=== PATIENT | female | born 1930 | race Caucasian/White ===

== ENCOUNTER 2019-02-24 18:32 | Inpatient (IN) | payer MEDICARE ==
--- NOTE | 2019-02-24 19:26 | ED ---
Adult Trauma - HPI Summary HPI Summary: This patient is an 88 year old F presenting to ED with a chief complaint of unwitnessed fall last night. Patient fell down a flight of thirteen steps. She has abrasions on her left arm, bilateral knees, back of head, left hip, and left foot. Patient reports lateral neck pain and right fraga pain. The patient rates the pain 5/10 in severity, achy, worse when she moves her leg. Patient lives alone and has a daily caregiver who checks in on her last saw her last night at 6 PM. She has family but they are not local. PMHx of dementia. Patient's neurologic baseline which is oriented intimately confused at times. - History of Current Complaint Chief Complaint: EDFall Stated Complaint: FALL PER EMS Time Seen by Provider: 02/24/19 18:34 Hx Obtained From: Patient, Family/O And M Supervisor Mechanism of Injury: Fall - Down flight of 13 steps Loss of Consciousness: unsure Onset/Duration: Started Days Ago - Last night, Traumatic, Still Present Onset of Pain: Post Accident Onset Severity: Moderate Current Severity: Moderate Pain Intensity: 5 Pain Scale Used: 0-10 Numeric Location: Head, Neck, Extremities, Other - Hip Aggravating Factor(s): Nothing Alleviating Factor(s): Nothing Associated Signs & Symptoms: Positive: Ecchymosis - Allergy/Home Medications Allergies/Adverse Reactions: Allergies Allergy/AdvReac Type Severity Reaction Status Date / Time No Known Allergies Allergy Verified 07/15/12 10:38 Home Medications: Home Medications NK [No Home Medications Reported] 02/24/19 [History Confirmed 02/24/19] PMH/Surg Hx/FS Hx/Imm Hx Endocrine/Hematology History: Reports: Hx Anemia Denies: Hx Anticoagulant Therapy, Hx Diabetes, Hx Thyroid Disease Cardiovascular History: Reports: Hx Hypercholesterolemia - HLD, Hx Valvular Heart Disease - AORTIC STENOSIS, AVR, Other Cardiovascular Problems/Disorders - AORTIC STENOSIS Denies: Hx Hypertension, Hx Pacemaker/ICD Respiratory History: Denies: Hx Asthma, Hx Chronic Obstructive Pulmonary Disease (COPD) GI History: Denies: Hx Ulcer History: Denies: Hx Renal Disease, Other Problems/Disorders - DENIES Musculoskeletal History: Reports: Hx Back Problems - DJD Denies: Hx Osteoporosis Sensory History: Reports: Hx Cataracts, Hx Contacts or Glasses, Hx Vision Problem - reading glasses Opthamlomology History: Reports: Hx Cataracts, Hx Contacts or Glasses, Hx Vision Problem - reading glasses Neurological History: Reports: Hx Dementia Denies: Hx Seizures Psychiatric History: Denies: Hx Substance Abuse - Cancer History Hx Chemotherapy: No Hx Radiation Therapy: No - Surgical History Surgery Procedure, Year, and Place: BACK SURGERY. AORTIC VALVE REPLACEMENT. CATARACTs - Immunization History Date of Tetanus Vaccine: Unsure Date of Influenza Vaccine: up to date Infectious Disease History: No Infectious Disease History: Denies: Hx Clostridium Difficile, Hx Hepatitis, Hx Human Immunodeficiency Virus (HIV), Hx of Known/Suspected MRSA, Hx Shingles, Hx Tuberculosis, Hx Known/ Suspected VRE, Hx Known/Suspected VRSA, History Other Infectious Disease, Traveled Outside the [place] in Last 30 Days - Family History Known Family History: Positive: Non-Contributory - Social History Alcohol Use: Occasionally Alcohol Amount: once about every 3 months Hx Substance Use: No Substance Use Type: Reports: None Hx Tobacco Use: No Smoking Status (MU): Never Smoked Tobacco Have You Smoked in the Last Year: No Review of Systems Musculoskeletal: Other - Right fraga pain, neck pain Skin: Other - abrasions on her left arm, bilateral knees, back of head, left hip , and left foot All Other Systems Reviewed And Are Negative: Yes Physical Exam - Summary Physical Exam Summary: Constitutional: elderly female, disheveled Skin: left hip abrasion, bilateral knee ecchymosis, 3cm stellate laceration to left elbow with large ecchymosis to left forearm HENT: Dried blood to posterior occiput Eyes: EOM normal, PERRL Neck: Trachea is midline. No stridor; No JVD; No step off; No posterior cervical spine tenderness Cardio: Rhythm regular, rate normal Heart sounds normal; Intact distal pulses; The pedal pulses are 2+ and symmetric. Radial pulses are 2+ and symmetric. Pulmonary/Chest wall: Effort normal; Breath sounds normal; Equal chest rise; No flail segment; No rib tenderness; No sternal tenderness Abd: Soft, Appearance normal. No distension; No tenderness Musculoskeletal: right fraga tenderness, left hip tenderness, left elbow tenderness. No cervical thoracic or lumbar tenderness Neuro: Alert, Oriented x3, GCS 15. Strength 5/5 all extremities. Psych: Mood and affect Normal GCS: 15 Triage Information Reviewed: Yes Vital Signs On Initial Exam: Initial Vitals Temp Pulse Resp BP Pulse Ox 99.3 F 88 16 124/63 99 02/24/19 18:36 02/24/19 18:36 02/24/19 18:36 02/24/19 18:36 02/24/19 18:36 Vital Signs Reviewed: Yes Diagnostics - Vital Signs Vital Signs Temp Pulse Resp BP Pulse Ox 02/24/19 18:36 99.3 F 88 16 124/63 99 - Laboratory Result Diagrams: 02/24/19 19:33 02/24/19 19:33 Lab Statement: Any lab studies that have been ordered have been reviewed, and results considered in the medical decision making process. - Radiology No standard instances Radiology Interpretation Completed By: ED Physician Re-Evaluation - Re-Evaluation First Eval Comment: Patient resting no acute distress. Pending plain films patient to be admitted to medicine for placement Adult Trauma Course/Dx - Course Course Of Treatment: 88-year-old female with a history of dementia presents with fall. - Physical exam notable for posterior occiput contusion, left forearm abrasion and ecchymosis, bilateral knee abrasions, right fraga contusion. Check CT brain C-spine, plain films of the extremities, and basic labs. Admit to medicine as patient is not safe at home and does not have any local caregivers pending imaging. Patient will be signed out to Dr. Ulises Woods at 2200 in 02/24/[address] brain, CT C-spine, and XRs. - Diagnoses Provider Diagnoses: Dementia, Fall, Multiple contusions Discharge - Sign-Out/Discharge Documenting (check all that apply): Sign-Out Patient Signing out patient TO: Ulises Woods Patient Received Moderate/Deep Sedation with Procedure: No - Discharge Plan Condition: Stable Referrals: Erin Bates MD [Primary Care Provider] - - Billing Disposition and Condition Condition: STABLE - Attestation Statements Document Initiated by Scribe: Yes Documenting Scribe: Deep Ramirez Provider For Whom Ayana is Documenting (Include Credential): Anju Sadler MD Scribe Attestation: Deep Lim, scribed for Anju Sadler MD on 02/24/19 at 2220. Scribe Documentation Reviewed: Yes Provider Attestation: The documentation as recorded by the Deep kaminski accurately reflects the service I personally performed and the decisions made by me, Anju Sadler MD Status of Scribe Document: Viewed
[2019-02-24] MEDS ORDERED: Tetan/Diph/Pertus SYR(Tdap)* 0.5 ML SYR(BOOSTRIX) use SYR IM ONE (19:45)
[2019-02-24 19:47] LABS: ABS Eosinophils 0.1 10^3/ul (0-0.6); ABS Lymphocytes 1.2 10^3/ul (1.0-4.8); ABS Monocytes 1.2 10^3/ul (0-0.8); Eosinophil % 1.1 %; Hematocrit 37 % (35-47); Hemoglobin 12.6 g/dL (12.0-16.0); Lymphocyte % 12.9 %; Mean Corpuscular HGB Conc 34 g/dL (31-36); Mean Corpuscular Hemoglobin 29 pg (27-31); Mean Corpuscular Volume 86 fL (80-97); Mean Platelet Volume 7.3 fL (7.4-10.4); Platelet Count 345 10^3/uL (150-450); Red Blood Count 4.33 10^6 /uL (3.70-4.87); Red Cell Distribution Width 14 % (10-15); White Blood Count 9.6 10^3/uL (3.5-10.8)
[2019-02-24 19:52] LABS: INR 1.08 (0.82-1.09)
[2019-02-24 20:04] LABS: Albumin 4.1 g/dL (3.2-5.2); Albumin/Globulin Ratio 1.5 (1-3); BUN/Creatinine Ratio 26.3 (8-20); Calcium 9.4 mg/dL (8.6-10.3); EGFR African American 81.7 (>60); EGFR Non-African American 67.5 (>60); Globulin 2.8 g/dL (2-4); Potassium 4.2 mmol/L (3.5-5.0); Total Bilirubin 0.9 mg/dL (0.2-1.0); Total Protein 6.9 g/dL (6.4-8.9)
--- NOTE | 2019-02-24 22:52 | ED ---
Progress - Progress Note Progress Note: This patient was signed out from Dr. Sadler to Dr. Woods at 22:00 02/24/[address] impression: 1. There has been little change from 12/19/2018. No acute interval intracranial process is identified. 2. Moderate chronic ischemic white matter change with areas of old deep white matter or lacunar infarct and mild diffuse atrophy. ED physician has reviewed this imaging report. Cervical spine CT impression: 1. Arthritic change centered between the odontoid and transverse ligament with question of trace fluid and some odontoid erosive or cystic change. There is a slightly displaced pathologic fracture through the cyst or erosion with posterior offset of the odontoid anteriorly by 1.5 mm and some inward collapse of the posterior wall of the cyst. 2. Multilevel degenerative changes with mild spinal and neural foraminal stenosis from C4-C6. No additional spinal or foraminal stenosis. 3. No additional acute fracture or subluxation ED physician has reviewed this imaging report. Lumbar Spine CT impression: 1. Fusion/ankylosis from L2-S1 with pedicular fusion from L3-S1. 2. Multilevel degenerative disc and facet changes with varying degrees of spinal and neural foraminal stenosis. 3. No acute fracture or subluxation. ED physician has reviewed this imaging report. Thoracic Spine CT impression: 1. Osteopenia. 2. Minimal to mild degenerative disc and facet joint changes. No significant spinal or foraminal stenosis. 3. No acute fracture or subluxation. ED physician has reviewed this imaging report. Upon re-eval, the patient was neurologically intact with no motor or sensory symptoms in hands or feet. Discussed case with Dr. Kohli, who will see the patient in the morning tomorrow. The x-rays revealed that both knees, tibia and fibula, and pelvis showed no acute fracture At 22:55 Case was discussed with Dr. Wilson, hospitalist, and he is aware of the patient. The patient will be admitted and she is agreeable with this plan. Re-Evaluation - Re-Evaluation First Eval Re-Evaluation Time: 22:53 Change: Unchanged Comment: the patient was neurologically intact with no motor or sensory symptoms in hands or feet. Course/Dx - Course Course Of Treatment: This patient was signed out from Dr. Sadler to Dr. Woods at 22:00 02/24/[address] impression: 1. There has been little change from 12/19/2018. No acute interval intracranial. process is identified. 2. Moderate chronic ischemic white matter change with areas of old deep white. matter or lacunar infarct and mild diffuse atrophy. ED physician has reviewed this imaging report. Cervical spine CT impression: 1. Arthritic change centered between the odontoid and transverse ligament with. question of trace fluid and some odontoid erosive or cystic change. There is a. slightly displaced pathologic fracture through the cyst or erosion with. posterior offset of the odontoid anteriorly by 1.5 mm and some inward collapse. of the posterior wall of the cyst. 2. Multilevel degenerative changes with mild spinal and neural foraminal. stenosis from C4-C6. No additional spinal or foraminal stenosis. 3. No additional acute fracture or subluxation. ED physician has reviewed this imaging report. Lumbar Spine CT impression: 1. Fusion/ankylosis from L2-S1 with pedicular fusion from L3-S1. 2. Multilevel degenerative disc and facet changes with varying degrees of. spinal and neural foraminal stenosis. 3. No acute fracture or subluxation. ED physician has reviewed this imaging report. Thoracic Spine CT impression: 1. Osteopenia. 2. Minimal to mild degenerative disc and facet joint changes. No significant. spinal or foraminal stenosis. 3. No acute fracture or subluxation. ED physician has reviewed this imaging report. Upon re-eval, the patient was neurologically intact with no motor or sensory symptoms in hands or feet. Discussed case with Dr. Kohli, who will see the patient in the morning tomorrow. The x-rays revealed that both knees, tibia and fibula, and pelvis showed no acute fracture. At 22:55 Case was discussed with Dr. Wilson, hospitalist, and he is aware of the patient. The patient will be admitted and she is agreeable with this plan. - Diagnoses Provider Diagnoses: Dementia, Fall, Multiple contusions, Odontoid fracture - Provider Notifications Discussed Care Of Patient With: Bruce Kohli Time Discussed With Above Provider: 22:48 Instructed by Provider To: Other - will see the patient in the morning. Discharge - Sign-Out/Discharge Documenting (check all that apply): Patient Departure - admit All imaging exams completed and their final reports reviewed: Yes Patient Received Moderate/Deep Sedation with Procedure: No - Discharge Plan Condition: Fair Disposition: ADMITTED TO [facility] - Billing Disposition and Condition Condition: FAIR Disposition: Admitted to [facility] - Attestation Statements Document Initiated by Ayana: Yes Documenting Warrenibe: Tyson Landeros Provider For Whom Ayana is Documenting (Include Credential): Ulises Woods MD Scribe Attestation: Tyson Lim, scribed for Ulises Woods MD on 02/25/19 at 0517. Scribe Documentation Reviewed: Yes Provider Attestation: The documentation as recorded by the Tyson kaminski accurately reflects the service I personally performed and the decisions made by me, Ulises Woods MD Status of Scribe Document: Viewed
[2019-02-24] MEDS ORDERED: Morphine 4 MG/ML VIAL (1 ml) 4 MG/ML VIAL ONE (23:30)
[2019-02-24] MEDS: Morphine 4 MG/ML VIAL (1 ml) 4 MG/ML VIAL IV PRN (23:32)
[2019-02-25] MEDS ORDERED: oxyCODONE/Acetamin 5/325 MG* TAB PO PRN ×2 (00:12→03:26)
[2019-02-25] MEDS ORDERED: Heparin VIAL(*) 5000 UNITS/ML VIAL (FIVE THOUSAND) SUBCUT ONE (00:38)
[2019-02-25] MEDS: Morphine 4 MG/ML VIAL (1 ml) 4 MG/ML VIAL IV PRN (02:11)
[2019-02-25] MEDS ORDERED: Ketorolac INJ* 30 MG/ML 1 ML VIAL IM ONE (03:30)
[2019-02-25 03:46] LABS: C Reactive Protein 20.81 mg/L (<8.01)
--- NOTE | 2019-02-25 05:13 | HP ---
HISTORY AND PHYSICAL: DATE OF ADMISSION: 02/24/19 ADMITTING PROVIDER: Dar Wilson MD PRIMARY CARE PROVIDER: Dr. Erin Bates. CONSULTING NEUROSURGEON: Dr. Kohli. CHIEF COMPLAINT: Fall down from stairs, neck pain. HISTORY OF PRESENT ILLNESS: Kathy Aguilar is an 88-year-old female with past medical history of worsening dementia, aortic stenosis, status post Bovine aortic valve repair in 2014, AFib, GI bleed, osteoarthritis, and hypertension. She has a family friend/helper, Lillian Briones, who dropped the patient off at 6 p.m. day prior to admission. Upon returning around 4:45 p.m. on day of admission, the patient was found on the couch with laceration to her left elbow and right knee with blood at the base of the stairs and indentation in the drywall near the base of the stairs. The patient is a very poor historian, but was able to say that she thinks she fell, although she said 2 to 3 days ago. There were some loose stools found in the hallway leading to the restroom that was near the base of the stairs. She presented to [facility] and had extensive imaging studies done given the traumatic nature of her fall and neck pain. The most significant of these is cervical spine CT scan, which did demonstrate a slightly displaced pathological fracture, pseudocyst or erosion of the odontoid with posterior aspect anteriorly of 1.5 mm and some inward collapse of the posterior wall of the cyst, so the anterior arch of C1 slightly overlapped to the C2 body by approximately 1.5 mm. The Emergency Room contacted Dr. Kohli of Neurosurgery, who recommended application of cervical collar with Mono J (of note, alternative collar has been applied in the interim) and recommended additional imaging with CT thoracic and lumbar spines, MRI of the cervical spine and MRI of the brain. She was referred to hospitalist service for admission. Dr. Kohli reportedly thought that the fracture looked potentially unstable and would recommend potential surgery to the patient in the morning. The patient denies any chest pain, shortness of breath. She states she thought she had a code that Lillian,the family friend has not noticed anything out the usual recently. I think she is just attributing her muscle soreness to post fall trauma. She apparently was found with some bread and butter at the table near her couch, but cannot attest of whether or not she had been eating or drinking. PAST MEDICAL HISTORY: Dementia; aortic stenosis, status post Bovine aortic valve replacement; AFib; GI bleed; dementia; hypertension; hyperlipidemia; osteoarthritis. PAST SURGICAL HISTORY: Includes lumbar spine surgeries x2, aortic valve replacement (Bovine 2013). MEDICATIONS: She most recently was prescribed looks like aspirin 81 mg and Aricept, though she has not been taking any medications on a regular basis and had not been doing so at least as of September when she saw Dr. Jana fernandez. ALLERGIES: No known drug allergies. FAMILY HISTORY: Mother at age 92 of dementia. Father of Alzheimer's disease in his late 80s. SOCIAL HISTORY: She is a former smoker. Reports of either between 12 and 20 years about a pack per day, quit in the 1970s. Her medical surrogate is her daughter, Macrina Hess of [place], [place]. REVIEW OF SYSTEMS: A complete 14-point review of systems is negative except as per HPI. Denies any abdominal pain. She does have pain in the left elbow. PHYSIAL EXAMINATION GENERAL APPEARANCE: In no acute distress, but some occasional grimaces. She is in a cervical collar. HEENT: Normocephalic. Pupils are equal, round, and reactive to light. LUNGS: Clear to auscultation bilaterally with no wheezing, rales, or rhonchi. CARDIOVASCULAR: Regular rate. Short decrescendo murmur in the left upper sternal border. No rubs or gallops. ABDOMEN: Soft, nontender, nondistended. EXTREMITIES: Warm, well perfused. No peripheral edema. SKIN; There is a ulceration scabbed over on the right patella and over the distal left forearm. DIAGNOSTIC STUDIES/LAB DATA: White count 9.6, hemoglobin 12.6, hematocrit 37, platelets 345, INR 1.08. Sodium 137, potassium 4.2, chloride 105, carbon dioxide 26, BUN 21, creatinine 0.8, glucose 118. Total bili is 0.9, AST 43, ALT 23, alk phos 84, lipase 18. Imagin. CT of the brain noncontrast demonstrated little change from 12/19/18 with no acute interval intracranial process identified. 2. Moderate chronic ischemic white matter change with areas of old deep white matter or lacunar infarct and mild diffuse atrophy. Cervical C-spine demonstrated: 1. Arthritic change centered between the odontoid and transverse ligament with question of trace fluid and some odontoid erosive or cystic change. There is a slightly displace pathological fracture through the cyst or erosion with posterior offset of the odontoid anteriorly by 1.5 cm and some inward collapse of the posterior wall of the cyst. Superior multilevel degenerative changes with mild spinal and neural foraminal stenoses from C4 to C6. No additional spinal or foraminal stenosis. Addendum/Correction: Vertebrae, there is very slight posterior displacement of remaining odontoid and anterior arch of C1 with anterior arch of C1 slightly overlapped into C2 body by approximately 1.5 mm. 2. No additional acute fracture or subluxation. Lumbar spine CT demonstrated: 1. Fusion/ankylosis of the L2-S1 with the particular effusion from L3-S1. Multilevel degenerative disk and facet changes with varying degrees of spinal and neural foraminal stenosis. 2. No acute fracture of subluxation. Thoracic spine CT demonstrated: Impression: 1. Osteopenia. 2. [id number] degenerative disk and facet joint changes. No significant spinal or foraminal stenosis. No acute fracture or subluxation. There is a 2-view chest x-ray, which showed no acute process per by wet read. There is an elbow x-ray, formal read pending. I do not see an obvious fracture. There is a left knee x-ray, formal read pending. I do not see an obvious fracture. There is a right knee x-ray, formal read pending. I do not see an obvious fracture. There is a right tibia-fibular x-ray, formal read pending. I do not see an obvious fracture. There is a left forearm x-ray, formal read pending. I do not see an obvious fracture. There is a pelvis x-ray, formal read pending. ASSESSMENT AND PLAN: Kathy Aguilar is an 88-year-old female with past medical history significant for worsening dementia, Bovine aortic zoe repair, presenting with concern for possible mechanical fall, though she is such a poor historian that is impossible to rule out syncopal event. Dr. Kohli will consult on the case tomorrow for her slightly displaced and potentially unstable odontoid fracture and potentially recommending a surgery to fix this. I am going to get EKG to further help risk stratify her. She does have a history of her last EKG of 06/28/16 of first-degree AV block. Echocardiogram from 2014 showed EF of 55 to 60% with some diastolic dysfunction. She reportedly has a history of atrial fibrillation, but is not on any anticoagulation for that, possibly in the setting of a GI bleed and does not take any regular medications at all regardless. She has an old cardiac catheterization from June 2013, which showed normal coronary arteries. Dr. Kohli wanted to get MRI of the cervical spine and brain, which will likely happen tomorrow. She will be getting [employer]icate[employer] J collar to replace the collar that she already has. I will put her n.p.o. for breakfast except for meds, sips with meds. In terms of known risk stratification, she does not have known coronary artery disease. She does have microvascular changes on her CT of the head and Dr. Peralta has been concerned of possible vascular dementia etiology as well. She is euvolemic on exam. No evidence of any diastolic heart failure or current atrial fibrillation, but we will see what the EKG shows. Her RCRI will likely be 0 with 3.9% 30-day risk of , DE, or cardiac arrest, although potentially that can be 1 depending what the EKG shows, which would increased it to 6.0%. She desires to be a full code. Medical surrogate is her daughter, Macrina Hess. For her pain, I will give her Percocet 1 tab p.o. q.6 hours for moderate pain and if she calls for more severe pain, which will add IV agent. We will try to get a urinalysis on her. She does not have any fever, leukocytosis, or active signs of infection. If her loose stools returned, could consider sending that for further studies. For DVT prophylaxis, I will give her heparin 5000 units tonight, 1 dose and then SCDs and further surgical plans determine further DVT prophylaxis. [id number]/[facility] #: [id number] [facility] HE[facility] PARTNERSJuan
[2019-02-25] MEDS: Acetaminophen TAB* 325 MG PO PRN (12:56)
--- NOTE | 2019-02-25 14:09 | PN ---
Subjective Date of Service: 02/25/19 Interval History: Patient says she doesnot have any complain now. She has lacerated wound on her left elbow, right forearm and both knees. Patient is disoriented and has impaired memory. No vomiting, weakness, incontinence, fever, abdominal pain. She has cervical collar in her neck. Objective Active Medications: Acetaminophen (Tylenol Tab*) 650 mg PO Q6H PRN PRN Reason: PAIN - MILD Last Admin: 02/25/19 12:56 Dose: 650 mg Morphine Sulfate (Morphine 4 Mg/Ml Vial (1 Ml)) 4 mg IV Q1H PRN PRN Reason: PAIN Stop: 02/25/19 23:20 Last Admin: 02/25/19 02:11 Dose: 4 mg Oxycodone/Acetaminophen (Percocet 5/325 Tab*) 2 tab PO Q6H PRN PRN Reason: PAIN Oxycodone/Acetaminophen (Percocet 5/325 Tab*) 1 tab PO Q6H PRN PRN Reason: PAIN - SEVERE Vital Signs - 8 hr 02/25/19 02/25/19 02/25/19 07:22 08:00 11:50 Temperature 98.3 F 98.2 F Pulse Rate 99 84 Respiratory 18 20 18 Rate Blood Pressure 113/55 108/52 (mmHg) O2 Sat by Pulse 97 95 Oximetry Oxygen Devices in Use Now: None Exam: Patient is lying on a bed with cervical collar. HEENT: Normocephalic. Eyes PERRLA Heart: Normal heart sound heard. LUngs: Normal breath sound. Abdomen: Mild suprapubic tenderness. Normal bowel sound heard. Extremities: Lacerated wound on left elbow, right forearm(oozing), scab on right and left knee. Visible veins on lower extremities. Neuro: Patient was oriented to place but but not to person and time. Memory impaired. Normal motor and sensory function all 4 extremities. Result Diagrams: 02/24/19 19:33 02/24/19 19:33 Assess/Plan/Problems-Billing Assessment: 88 y/o F with past medical history of worsening dementia, Aortic Stenosis(s/p sortic valve repair), A Fib, GI Bleed, osteoarthitis and HTN was brought to ED by her friend who found her lying on a couch with laceration on elbow and knees. May have fallen from stairs. Found to have Odontoid fracture on CT scan. Neurosurgeon consulted and may probably operate on tuesday. - Patient Problems (1) Odontoid fracture Comment: Secondary to the fall. No any sign of weakness on upper limbs. CT cervical spine showed slightly displaced pathologic frature of odontoid and multiple degenerative changes. Scheduled for MRI. Neurosurgeon consulted and may do surgery on tuesday. (2) Dementia Comment: Patient has impaired memory with disorientation. one to one monitoring. (3) DVT prophylaxis Comment: SCD. Status and Disposition: Medicine inpatient Attending: Salina Martinez
--- NOTE | 2019-02-25 14:19 | CONS ---
CONSULTATION REPORT: DATE OF CONSULT: 02/25/19 HISTORY OF PRESENT ILLNESS: The patient is a very pleasant 88-year-old female with past medical history of dementia, aortic stenosis, status post bovine aortic valve repair in 2013, atrial fibrillation, GI bleed, osteoarthritis, and hypertension. She was reported to have sustained a fall, although the history is not very clear as the patient is a poor historian. During the patient's visit to emergency room, CT scan of the cervical spine revealed a C2 type II odontoid fracture on the basis of an eroded odontoid process with possible pannus, possibly related to her history of arthritis. Requested to see the patient by Dr. Woods, emergency room physician, regarding the above findings. The patient is a poor historian, but she reports that she has mild neck pain, but no back pain. She denies any weakness, numbness, or tingling or her extremities. The patient was able to ambulate prior to fall, unknown if she had urinary or GI incontinence. The patient reports that she lives with her , who is a retired partner cco. PAST MEDICAL HISTORY: Dementia, aortic stenosis, status post bovine aortic valve replacement, atrial fibrillation, GI bleed, hypertension, hyperlipidemia , and osteoarthritis. PAST SURGICAL HISTORY: Spinal fusions x2, aortic valve replacement. MEDICATIONS: The patient was on: 1. Aspirin 81. 2. Aricept. ALLERGIES: No known drug allergies. FAMILY HISTORY: Dementia, Alzheimer's. SOCIAL HISTORY: The patient is a former smoker. The patient's medical surrogate is her daughter, Macrina Mauricio, from [place], [place]. PHYSICAL EXAMINATION: The patient not in acute distress. She is awake and alert. She is oriented x1 to 2. Her pupils are equal and reactive. Cranial nerves II through XII are grossly intact. Motor 4-5/5 in all extremities. No pronator drift. Sensory is grossly intact to light touch. Deep tendon reflexes are +1 bilaterally. No clonus, no Babinski. Jaja is negative. Straight leg test is negative in the sitting position. The patient has arthritic changes in the distal interphalangeal joints. The patient is on a [place] collar. She has mild tenderness in the midline and the upper cervical spine, but no tenderness to palpation in the thoracic or lumbar spine. DIAGNOSTIC STUDIES/LAB DATA: The patient had CT scan of the brain that did not reveal acute intracranial abnormalities or hemorrhage or hematoma. No midline shift. The patient had the CT scan of the cervical spine that revealed degenerative disease with C2 type II odontoid fracture on basis of eroded C2 odontoid process versus pannus. There is no significant displacement, although it has been reported that there is 1.5 mm posterior offset of the odontoid. The patient had a scan of the thoracic spine that revealed degenerative disc disease, with no evidence of fracture or subluxation. The patient had a CT scan of the lumbar spine that revealed degenerative disc disease with extensive preoperative instrumentation between L3 to S1, with an L3 -4 grade 1 spondylolisthesis with severe degenerative changes, without findings of fracture or traumatic subluxation. ASSESSMENT: The patient is a very pleasant 88-year-old female with history of dementia, bovine aortic valve repair, atrial fibrillation, osteoarthritis, who was reported to have sustained a fall and has significant finding consistent with a C2 type II odontoid fracture with erosion/pannus. PLAN: The patient at this point is doing quite well. She has tolerated [place] collar very well and her pain is adequately controlled. Based on her imaging , I think that she would require an MRI of the cervical spine as well as the brain as on the CT of the brain there is a suspicion of right cerebellar cyst or encephalomalacia, although the findings seem to be chronic. Regarding her cervical spine fracture, I think that because of the previous erosion of the odontoid process and the expected incompetency of the transverse ligament, surgical intervention may the best approach, possibly in the form of C1-C2 fixation with C1 lateral mass as well as C2 pedicle/pars screws if the patient can be cleared for surgical intervention. I attempted to contact the patient's surrogate, who is her daughter, Macrina Mauricio, and left a message on her home phone, which was available on the chart. Thank you for allowing us to participate in the care of this patient. Please do not hesitate to contact our office in case you have any further questions or concerns regarding the care of this patient. In the interim, the patient will be on spine precautions and bedrest, with head of bed elevated not more than 30 degrees. [id number]/[facility] #: [id number] [facility]
--- NOTE | 2019-02-25 15:10 | PN ---
Progress Note - Progress Note Date of Service: 02/25/19 Note: Patient was seen again this pm. Neuro stable. Tolerates MJ collar well. Left message earlier to patient;s daughter phone. Discussed with caregiver at the bedside and regarding possibility of surgical intervention because of C2 potential unstable fracture. Patient's caregiver will contact patient's daughter. Will keep MJ collar on for now and keep patient on spine precautions with bed rest and head OOB no more than 30 ' Ursula Kohli MD
[2019-02-25 16:35] LABS: Urine Appearance Cloudy; Urine Bacteria Absent (Absent); Urine Bilirubin Negative (Negative); Urine Blood Negative (Negative); Urine Color Yellow; Urine Glucose Negative (Negative); Urine Ketones Negative (Negative); Urine Nitrite Negative (Negative); Urine Protein Negative (Negative); Urine Red Blood Cell Absent (Absent); Urine Specific Gravity 1.021 (1.010-1.030); Urine Squamous Epithelial Cell Present (Absent); Urine Urobilinogen Negative (Negative); Urine White Blood Cell 3+(>20/hpf) (Absent)
[2019-02-26] MEDS: oxyCODONE/Acetamin 5/325 MG* TAB PO PRN (00:03)
[2019-02-26] MEDS ORDERED: Haloperidol INJ IV/IM* 5 MG/ML AMP IV SLOW PU PRN (09:13)
--- NOTE | 2019-02-26 11:05 | ECHO ---
*[facility]* [place] [address] Fax #: [phone] Transthoracic Echocardiogram Patient: Kathy Aguilar V : 1930 Study Date: 02/26/2019 Age: 88 Gender: F HR: 82 bpm Height: 67 in /170.2 cm BSA: 1.8 m^2 Weight: 149.7 lb /68 kg BMI: 23.5 kg/m^2 *Dietetic Assistant: * Yuly Toney RD *Referring Physician: * Zain Zee *Reading Physician: * Brayden Davis MD Indications: Syncope. 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 . Risk factors: Hypertension. Conclusions Summary: - Left ventricle: Systolic function is normal. The estimated ejection fraction is 55-60%. Wall motion is normal; there are no regional wall motion abnormalities. - Ventricular septum: Ventricular septal wall motion has a postoperative appearance. - Mitral valve: There is mild regurgitation. - Aortic valve: There is no significant regurgitation. Bioprosthetic aortic valve replacement with normal function. - Tricuspid valve: There is mild regurgitation. - Pericardium, extracardiac: There is no pericardial effusion. - Compared to study of 03/10/15, there is no change. Study data: Transthoracic echocardiogram. Procedure: Transthoracic echocardiography was performed. Image quality was good. Complete 2D, spectral Doppler, and color flow Doppler. Patient status: Inpatient. Patient room number: 403. Rhythm: Normal sinus rhythm with PAC's. Findings Left ventricle: The cavity size is normal. Wall thickness is normal. Systolic function is normal. The estimated ejection fraction is 55-60%. Wall motion is normal; there are no regional wall motion abnormalities. Left ventricular diastolic function parameters are indeterminate. Right ventricle: Well visualized. The cavity size is normal. Wall thickness is normal. Systolic function is normal. Ventricular septum: Well visualized. Ventricular septal wall motion has a postoperative appearance. Left atrium: Well visualized. The atrium is normal in size. Right atrium: Well visualized. The atrium is normal in size. Mitral valve: Well visualized. The leaflets are normal thickness. No echocardiographic evidence for prolapse. There is no evidence of stenosis. There is mild regurgitation. Aortic valve: Well visualized. The valve is trileaflet. The leaflets are normal thickness. The findings are consistent with very mild stenosis. There is no significant regurgitation. Bioprosthetic aortic valve replacement with normal function. Tricuspid valve: Well visualized. The leaflets are normal thickness. There is no evidence of stenosis. There is mild regurgitation. Pulmonic valve: Well visualized. The leaflets are normal thickness. There is no evidence of stenosis. There is moderate regurgitation. Aorta: The aorta is not visualized. Cervical collar in place unable to assess arch. Ascending aorta was visualized. Pericardium: There is no pericardial effusion. No evidence of pleural fluid accumulation. Pulmonary arteries: Systolic pressure is within the normal range. Systemic veins: Well visualized. Inferior vena cava: There is (>= 50%) respiratory change in the IVC dimension. Pulmonary veins: Visualization of the pulmonary venous anatomy is incomplete, but a significant abnormality is unlikely. Measurements Left ventricle Value Ref Right atrium continued Value Ref KRISTINA, LAX 3.9 cm 3.8 - 5.2 ML dim, ES, A4C (H) 4.6 cm 2.6 - ESD, LAX 2.7 cm 2.2 - 3.5 4.4 FS, LAX 32 % 27 - 45 SI dim, ES, A4C 5.1 cm 3.4 - PW, ED, LAX (H) 1.1 cm 0.6 - 0.9 5.3 FS 32 % 27 - 45 SI dim/bsa, ES, 2.8 cm/m^2 1.9 - Mid-wall FS 13 % --------- A4C 3.1 PW, ED (H) 1.1 cm 0.6 - 0.9 Estimated RAP 3 mm Hg -------- PW/ID, ED 0.27 --------- E', lat yisel, TDI (L) 9.1 cm/sec >=10.0 Aortic valve Value R ef E/e', lat yisel, TDI 15 --------- Peak v, S 1.99 m/sec ---- ---- VTI, S 34.4 cm -------- LVOT Value Ref Mean grad, S 8.5 mm Hg -------- Diam, S 1.56 cm --------- Peak grad, S 15.9 mm Hg -------- Area 1.9 cm^2 --------- LVOT/AV, VTI ratio 0.71 -------- Peak kimberly, S 1.32 m/sec --------- TO, VTI 1.36 cm^2 -------- VTI, S 24.5 cm --------- TO, Vmax 1.26 cm^2 -------- Peak grad, S 7 mm Hg --------- Mean grad, S 4 mm Hg --------- Mitral valve Value Ref Peak E 1.34 m/sec -------- Ventricular septum Value Ref Peak A 0.52 m/sec -------- IVS, ED (H) 1.0 cm 0.6 - 0.9 Decel time 151 ms -------- Peak grad, D 7.2 mm Hg -------- Right ventricle Value Ref Peak E/A ratio 2.58 -------- KRISTINA, LAX 2.9 cm --------- MR peak v 3.79 m/sec -------- KRISTINA major ax, A4C (L) 3.4 cm 5.9 - 8.3 Pulmonic valve Value Ref Left atrium Value Ref Peak v, S 0.63 m/sec -------- LA ID 4.2 cm --------- Peak grad, S 1.6 mm Hg -------- SI dim ES, LAX 4.2 cm --------- ML dim, A4C 3.7 cm --------- Tricuspid valve Value Ref SI dim, A4C 6.3 cm --------- TR peak v (H) 3.01 m/sec <=2.8 Vol, ES, 2-p 74 ml --------- Peak RV-RA grad, S 36 mm Hg -------- Vol/bsa, ES, 2-p (H) 41 ml/m^2 16 - 34 Aortic root Value Ref Right atrium Value Ref Root diam 1.5 cm <4.0 SI dim, ES 5.1 cm 3.4 - 5.3 Ascending aorta Value Ref AAo AP diam, S 2.3 cm -------- AAo AP diam/bsa, S 1.3 cm/m^2 -------- Legend: (L) and (H) archana values outside specified reference range. Prepared and electronically signed by Brayden Davis MD 02/26/2019 11:04
--- NOTE | 2019-02-26 11:14 | PN ---
Progress Note - Progress Note Date of Service: 02/26/19 Note: Patient is stable at this time, neurosurgery will plan for surgery tomorrow. Patient has MRI of Cervical spine and Brain pending, will follow up the results of imaging. Patient will needed to be medically cleared and NPO after midnight for surgery in the morning. Dr. Kohli has spoke with patient's daughter to consent patient for surgery.
[2019-02-26] MEDS: Acetaminophen TAB* 325 MG PO PRN (13:54)
--- NOTE | 2019-02-26 14:13 | PN ---
Subjective Date of Service: 02/26/19 Interval History: No overnight issues. Patient is cheerful, able to converse with us, though she is confused in detail information (she thought her was at home and she needed to discuss with him for operation decisions). She had no headache, no dizziness, no numbness or weakness. Objective Active Medications: Acetaminophen (Tylenol Tab*) 650 mg PO Q6H PRN PRN Reason: PAIN - MILD Last Admin: 02/26/19 13:54 Dose: 650 mg Haloperidol Lactate (Haldol Inj Iv/Im*) 2.5 mg IV SLOW PU ONCE PRN PRN Reason: AGITATION Oxycodone/Acetaminophen (Percocet 5/325 Tab*) 2 tab PO Q6H PRN PRN Reason: PAIN Oxycodone/Acetaminophen (Percocet 5/325 Tab*) 1 tab PO Q6H PRN PRN Reason: PAIN - SEVERE Last Admin: 02/26/19 00:03 Dose: 1 tab Vital Signs - 8 hr 02/26/19 02/26/19 02/26/19 07:35 08:00 11:55 Temperature 97.9 F 99.1 F Pulse Rate 83 80 Respiratory 16 16 16 Rate Blood Pressure 121/68 112/73 (mmHg) O2 Sat by Pulse 97 97 Oximetry Oxygen Devices in Use Now: None Exam: Patient is generally well, alert, not oriented, not in distress On collar Heart: S1 S2 normal Lung: clear, no rhonchi or crackles Abdomen: soft, non tender. Lower extremity: no swelling Result Diagrams: 02/24/19 19:33 02/24/19 19:33 Assess/Plan/Problems-Billing Assessment: 88 y/o F with past medical history of worsening dementia, Aortic Stenosis(s/p sortic valve repair), A Fib, GI Bleed, osteoarthitis and HTN was brought to ED by her friend who found her lying on a couch with laceration on elbow and knees. Found to have Odontoid fracture on CT scan. Neurosurgeon was consulted and recommended for operation due to unstable nature of this fracure. However neurosurgeon still couldn't get in touch with patient's daughter despite multiple attempts. - Patient Problems (1) Odontoid fracture Current Visit: Yes Status: Acute Code(s): S12.110A - ANTERIOR DISPLACED TYPE II DENS FRACTURE, INIT FOR CLOS FX SNOMED Code(s): 614278732 Comment: Secondary to the fall. No any sign of weakness on upper limbs. CT cervical spine showed slightly displaced pathologic frature of odontoid and multiple degenerative changes. Scheduled for MRI today plan for operation if daughter consented (2) Dementia Current Visit: Yes Status: Acute Code(s): F03.90 - UNSPECIFIED DEMENTIA WITHOUT BEHAVIORAL DISTURBANCE SNOMED Code(s): 28165882 Comment: Patient has impaired memory with disorientation. one to one monitoring. (3) Aortic stenosis Current Visit: No Status: Acute Code(s): I35.0 - NONRHEUMATIC AORTIC (VALVE ) STENOSIS SNOMED Code(s): 91935957 Comment: - s/p valve replcement - Echo shows normal function (4) Hyperlipidemia Current Visit: No Status: Acute Code(s): E78.5 - HYPERLIPIDEMIA, UNSPECIFIED SNOMED Code(s): 06447821 Comment: continue lipitor (5) Shortness of breath Current Visit: No Status: Acute Code(s): R06.02 - SHORTNESS OF BREATH SNOMED Code(s): 104925100 Comment: - No further episodes -unknown etilogy. Most likely undx COPD; 20 year smoking hx. Never had PFT's. Will need outpt follow-up. Continue albuterol PRN. Prescibe MDI on discharge. - Echo shows no wall motion abnormalities, EF 55-60%, nomral function of aortic bio-prosthetic aortic valve, no effusion. - NM cardiac stress test LOW RISK based on imaging criteria from ACC/AHA - cardiac cath 2012 shows normal coronary arteries - Troponins negative - No EKG changes. (6) Afib Current Visit: No Status: Chronic Code(s): I48.91 - UNSPECIFIED ATRIAL FIBRILLATION SNOMED Code(s): 14824571 Comment: - in Sinus Rhythm - hx of GI bleed. No anticoagulation. - continue ASA (7) DVT prophylaxis Current Visit: Yes Status: Acute Code(s): Z29.9 - ENCOUNTER FOR PROPHYLACTIC MEASURES, UNSPECIFIED SNOMED Code(s): 712826575 Comment: SCD. Status and Disposition: Patient came from home, stays alone at home with helper who came in several times a week. Will need rehab or skilled nursing care place when getting discharged Attestation Documenting Resident: Rosa Metcalf Supervising Physician: Britany Sandoval Attestation: This service has been performed in part by a resident under the direction of a teaching physician.I, Britany Sandoval, performed the service, or was physically present during the critical, or mayo portions of the service, furnished by the resident. I participated in the management of the patient.
--- NOTE | 2019-02-26 17:21 | HOSP.PREOP ---
Subjective Date of Service: 02/26/19 Interval History: 88F dementia, s/p AVR, PAF not on AC, hx of PUD, osteoarthritis and HTN was brought to ED s/p presumed mechanical fall, found to have odontoid fracture on CT scan. Neurosurgeon was consulted and recommended for operation due to unstable nature of this fracture. Patient unable to take full hx 2/2 to MS Preop Operation: Neurosurgical Indication: Fracture Proposed Date: 02/27 BMP, CBC, PT/INR: To be drawn 02/27 EKG; Ordered, last reviewed with Afib chronic, Echocardiogram 02/26 unchanged, no valvular pathology well seated bovine unchanged in position no RWMA RCRI High risk Surgery? No History of ischemic heart dz? No History of CHF? No History of CVA or TIA? Unknown, will presume possible yes in absence of ability to give adequate hx Preop tx with insulin? No Pre op Cr >2? No Risk score 1, Class II, 6% risk of 30 day NM or cardiac arrest Review of Systems - Measurements Intake and Output: Intake and Output Last 24 Hours 02/24/19 02/25/19 02/26/19 02/27/19 06:59 06:59 06:59 06:59 Intake Total 0 110 600 Balance 0 110 600 Weight 150 lb 9.6 oz 150 lb 9.6 oz Intake: Oral 0 110 600 Other: Estimated Void Small # Voids 0 1 - Review of Systems General Comments: Unable to participate Objective Active Medications: Acetaminophen (Tylenol Tab*) 650 mg PO Q6H PRN PRN Reason: PAIN - MILD Last Admin: 02/26/19 13:54 Dose: 650 mg Haloperidol Lactate (Haldol Inj Iv/Im*) 2.5 mg IV SLOW PU ONCE PRN PRN Reason: AGITATION Last Admin: 02/26/19 15:55 Dose: 2.5 mg Oxycodone/Acetaminophen (Percocet 5/325 Tab*) 2 tab PO Q6H PRN PRN Reason: PAIN Oxycodone/Acetaminophen (Percocet 5/325 Tab*) 1 tab PO Q6H PRN PRN Reason: PAIN - SEVERE Last Admin: 02/26/19 00:03 Dose: 1 tab Vital Signs - 8 hr 02/26/19 02/26/19 11:55 16:10 Temperature 99.1 F 98.2 F Pulse Rate 80 86 Respiratory 16 17 Rate Blood Pressure 112/73 107/65 (mmHg) O2 Sat by Pulse 97 97 Oximetry Oxygen Devices in Use Now: None Appearance: Lying in bed in NAD, Cervical Collar Eyes: No Scleral Icterus Respiratory: Clear to Auscultation Cardiovascular: NL Sounds; No Murmurs; No JVD Abdominal: NL Sounds; No Tenderness; No Distention Lymphatic: No Cervical Adenopathy Extremities: No Edema Neurological: - Result Diagrams: 02/24/19 19:33 02/24/19 19:33 Microbiology and Other Data: Microbiology 02/25/19 14:46 Urine Culture - Final Urine No Growth (<1,000 CFU/mL) Assessment/Plan - Billing Assessment: 88F dementia, s/p AVR, PAF not on AC, hx of PUD, osteoarthritis and HTN was brought to ED s/p presumed mechanical fall, found to have odontoid fracture on CT scan. Pt is mod to high risk from an age standpoint, though mod to low from a risk factor standpoint for a mod risk procedure. Her RCRI shows a Class II which portends 6% risk of major complication and given alternatives patients family has elected for surgical correction. -Echo stable -Labs to be viewed 02/27 We recommend no further testing or optimization prior to proceeding to OR.
--- NOTE | 2019-02-27 00:29 | PN ---
Progress Note - Progress Note Date of Service: 02/26/19 Note: Patient seen earlier this am. Neuro stable. Tolerates MJ collar well. Discussed in extend with patient's daughter Macrina over the phone regarding patient's condition. Due to erosion of odontoid and the C2 type 2 fracture, injury or incompetence of transverse ligament has high likelihood. Also due to the poor remaining bone mass at the site of fracture spontaneous bone healing may be challenging. Due to the likely unstable nature of the fracture and the possible devastating neurological injuries that may ocurr, surgical intervention was offered. Discussed in extend with daughter, who is a intraoperative monitoring vtc technician regarding expectations, limitations, alternative treatment options and possible complictions, with complications including but not limited to bleeding, infection,risk of injury to adjacent structures, coma, paralysis, ,need for additional procedures, stroke, blindness, ca , hardware failure, pseudoarthrosis, spinal fluid leak, injury to vertebral arteries,injury to nerves, occipital neuralgia, anesthesia risks, need for prolonged ICU stay, need for tracheostomy, gastrostomy, prolonged rehabilitation, prolonged hospitalization. Also patient's daughter understands that patient's condition may not improve and in fact may get worse and that she may have to have additional procedures in the future. Also she understands that operative plan may be modified according to intraoperative findings and conditions and that the case may be abandoned or done in more than one stages. We also discussed the option of transferring to an other facility and the prospective of my scheduled prolonged absence. Patient's daughter would like to proceed with the surgical intervention in [facility]. Informed consent was obtained. Discussed with patient regarding surgical intervention. Patient has hx of dementia, but understands the need for surgical intervention and has agreed with the procedure. Will proceed with surgical intervention after IM clearance. MRI of c spine revealed similar to CT findings. No obvious infection or tumor. Erosion changes may represent OA changes and pannus, as patient has no known hx of RA or other arthritis. Appreciate IM care. Ursula Kohli MD
[2019-02-27 06:59] LABS: ABS Eosinophils 0.1 10^3/ul (0-0.6); ABS Lymphocytes 1.3 10^3/ul (1.0-4.8); ABS Monocytes 1.1 10^3/ul (0-0.8); ABS Neutrophils 6.7 10^3/ul (1.5-7.7); Eosinophil % 1.5 %; Hematocrit 34 % (35-47); Hemoglobin 11.9 g/dL (12.0-16.0); Lymphocyte % 13.6 %; Mean Corpuscular HGB Conc 35 g/dL (31-36); Mean Corpuscular Hemoglobin 30 pg (27-31); Mean Corpuscular Volume 85 fL (80-97); Mean Platelet Volume 7.5 fL (7.4-10.4); Platelet Count 299 10^3/uL (150-450); Red Blood Count 4.01 10^6 /uL (3.70-4.87); Red Cell Distribution Width 14 % (10-15); White Blood Count 9.3 10^3/uL (3.5-10.8)
[2019-02-27 07:09] LABS: INR 1.04 (0.82-1.09)
[2019-02-27 07:23] LABS: Calcium 8.9 mg/dL (8.6-10.3); EGFR African American 105.7 (>60); EGFR Non-African American 87.4 (>60); Potassium 3.8 mmol/L (3.5-5.0)
--- NOTE | 2019-02-27 09:30 | PN ---
Subjective Date of Service: 02/27/19 Interval History: No overnight events. Pt is more confused and agitated this morning. She wants to climb out of bed and goes home. She thinks it was evening time. Noted patient is still on one to one monitoring as patient often tried to climb out of bed. Objective Active Medications: Acetaminophen (Tylenol Tab*) 650 mg PO Q6H PRN PRN Reason: PAIN - MILD Last Admin: 02/26/19 13:54 Dose: 650 mg Oxycodone/Acetaminophen (Percocet 5/325 Tab*) 2 tab PO Q6H PRN PRN Reason: PAIN Oxycodone/Acetaminophen (Percocet 5/325 Tab*) 1 tab PO Q6H PRN PRN Reason: PAIN - SEVERE Last Admin: 02/26/19 00:03 Dose: 1 tab Vital Signs - 8 hr 02/27/19 02/27/19 02:54 08:42 Temperature 97.2 F 98.2 F Pulse Rate 98 93 Respiratory 18 16 Rate Blood Pressure 148/44 120/78 (mmHg) O2 Sat by Pulse 98 96 Oximetry Oxygen Devices in Use Now: None Exam: Pt is alert Thought it was evening time, and she was going home, Heart normal S1, S2 Lung clear Abdomen soft non tender LL: no swelling Result Diagrams: 02/27/19 06:41 02/27/19 06:41 Microbiology and Other Data: Microbiology 02/25/19 14:46 Urine Culture - Final Urine No Growth (<1,000 CFU/mL) Assess/Plan/Problems-Billing Assessment: 88 y/o F with past medical history of dementia, Aortic Stenosis(s/p sortic valve repair), A Fib, GI Bleed, osteoarthitis and HTN was brought to ED by her friend who found her lying on a couch with laceration on elbow and knees. Found to have Odontoid fracture on CT scan. Neurosurgeon planned for surgery today due to unstable nature of this fracure with consent from her daughter. - Patient Problems (1) Odontoid fracture Current Visit: Yes Status: Acute Code(s): S12.110A - ANTERIOR DISPLACED TYPE II DENS FRACTURE, INIT FOR CLOS FX SNOMED Code(s): 561516089 Comment: Secondary to the fall. plan for operation due to unstable nature. (2) Compression fracture Current Visit: Yes Status: Acute Code(s): [id number] - SNOMED Code(s): 150528922 Comment: T1, T2 compression fracture without osseous retropulsion in MRI cervical spine. Likely traumatic in nature follow up with primary care to check up on osteoprosis (3) Dementia Current Visit: Yes Status: Acute Code(s): F03.90 - UNSPECIFIED DEMENTIA WITHOUT BEHAVIORAL DISTURBANCE SNOMED Code(s): 26619521 Comment: Patient has impaired memory with disorientation. on one to one monitoring due to her disruptive behaviour since admission (4) Aortic stenosis Current Visit: No Status: Acute Code(s): I35.0 - NONRHEUMATIC AORTIC (VALVE ) STENOSIS SNOMED Code(s): 08202902 Comment: - s/p valve replcement - echo normal this admission (5) Hyperlipidemia Current Visit: No Status: Acute Code(s): E78.5 - HYPERLIPIDEMIA, UNSPECIFIED SNOMED Code(s): 62892000 Comment: continue lipitor (6) Afib Current Visit: No Status: Chronic Code(s): I48.91 - UNSPECIFIED ATRIAL FIBRILLATION SNOMED Code(s): 51030817 Comment: - paroxysmal Afib - hx of GI bleed. No anticoagulation. - continue ASA (7) DVT prophylaxis Current Visit: Yes Status: Acute Code(s): Z29.9 - ENCOUNTER FOR PROPHYLACTIC MEASURES, UNSPECIFIED SNOMED Code(s): 531682236 Comment: SCD. Status and Disposition: Patient came from home, stays alone at home with helper who came in several times a week. Will need rehab or ferry [facility] supervisor care place when getting discharged Attestation Documenting Resident: Rosa Metcalf Supervising Physician: Britany Sandoval Attestation: This service has been performed in part by a resident under the direction of a teaching physician.I, Britany Sandoval, performed the service, or was physically present during the critical, or mayo portions of the service, furnished by the resident. I participated in the management of the patient.
[2019-02-27] MEDS ORDERED: Bisacodyl SUPP* 10 MG SUPP PR ONE (09:34)
[2019-02-27] MEDS ORDERED: ceFAZolin 2 GM in NS PREMIX(*) 2 GM/100 ML BAG IVPB ONE (11:25)
--- NOTE | 2019-02-27 13:58 | PN ---
Hospitalist Progress Note Date of Service: 02/27/19 Attending Assessment and Plan HD #4 on 02/27 Subjective and objective data reviewed in resident note of which I agree and supervised 88F dementia, s/p AVR, PAF not on AC, hx of PUD, osteoarthritis and HTN was brought to ED s/p presumed mechanical fall, found to have odontoid fracture on CT scan, undergoing surgery #Odontoid fracture: Post operative measures per neurosurgeyr #Dementia: Needs frequent orientation, watch for postoperative behavioral problems, low dose haldol PRN #PAF: Risks outwiegh benefits for AC #Hx of s/p AVR: Echo here normal #HTN: No meds #DVT: Resume post operatively #Code Status: Full #Dispo: Likely will need STR
[2019-02-27] MEDS ORDERED: Succinylcholine* 20 MG/ML 10 ML VIAL ONE (15:31)
[2019-02-27] MEDS ORDERED: Lidocaine 2% PF * 5 ML VIAL ONE (15:31)
[2019-02-27] MEDS ORDERED: Propofol* 10 MG/ML 20 ML BTL ONE (15:31)
[2019-02-27] MEDS ORDERED: Midazolam* 1 MG/ML 5 ML VIAL (5 MG) ONE ×2 (15:34→15:37)
[2019-02-27] MEDS ORDERED: Bacitracin INJECTION* 50,000 UNITS ONE (15:34)
[2019-02-27] MEDS ORDERED: Bupivacaine 0.5%* 50 ML VIAL ONE (15:34)
[2019-02-27] MEDS ORDERED: Thrombin 5,000 UNITS* 1 APPLIC KIT - topical use - TOPICAL ONE (15:34)
[2019-02-27] MEDS ORDERED: fentaNYL* 50 MCG/ML 2 ML VIAL (100 MCG VIAL) ONE (15:35)
[2019-02-27] MEDS ORDERED: Rocuronium* 10 MG/ML VIAL ONE (15:36)
[2019-02-27] MEDS ORDERED: Haloperidol TAB* 2 MG ONE (16:40)
[2019-02-27] MEDS ORDERED: Haloperidol TAB* 2 MG PO SCH (17:00)
[2019-02-27] MEDS ORDERED: Haloperidol TAB* 2 MG PO PRN (18:00)
[2019-02-27] MEDS ORDERED: Haloperidol INJ IV/IM* 5 MG/ML AMP IV SLOW PU PRN (19:42)
--- NOTE | 2019-02-27 23:35 | PN ---
Progress Note - Progress Note Date of Service: 02/27/19 Note: Neurosurgery attempted to take patient to surgery, but due equipment malfunction was unable to perform surgery today. Neurosurgery team will possible recommend transfer patient out for surgical repair of her C2 fracture.
[2019-02-28] MEDS ORDERED: Enoxaparin(*) 30 MG/0.3 ML SYR SUBCUT SCH (07:00)
--- NOTE | 2019-02-28 07:06 | PN ---
Hospitalist Progress Note Date of Service: 02/28/19 Attending Assessment and Plan I agree iwht objective and subjective plan as per resident note of which I supervised 88 F PMH dementia, , Afib not on AC presented with Odontoid fracture being fed to [facility] for definitive mgmt Discussion with Dr. Atwood last night reveals that the machine that will be needed to successfully do this operation will not be fixed for some time. #Odontoid Fracture: Trasnfer with C Collar, family updated #compressoin fractures: no retropulsion, outpatient follow up #dementia: Minimal behavioral issues that need pharmacology #Afib: Not on AC at patient and families request # s/p AVR: Echo unremarkable #DVT Lovenox #Code: Full as per H/P dispo-Transfer
--- NOTE | 2019-02-28 08:11 | PN ---
Progress Note - Progress Note Date of Service: 02/28/19 Note: Case was cancelled due to malfunction of OR equipment. After discussion over the phone with patient's daughter and explaining different options patient's dauhter would agree to transfer the patient to other facility. She would prefer [facility] if possible. Discussed with Dr Sandoval. Appreciate IM care. Roselia Kohli MD
--- NOTE | 2019-02-28 15:00 | PN ---
Subjective Date of Service: 02/28/19 Interval History: Patient was less agitated. Objective Active Medications: Acetaminophen (Tylenol Tab*) 650 mg PO Q6H PRN PRN Reason: PAIN - MILD Last Admin: 02/26/19 13:54 Dose: 650 mg Enoxaparin Sodium (Lovenox(*)) 30 mg SUBCUT Q24H HAWK Last Admin: 02/28/19 07:36 Dose: 30 mg Haloperidol Lactate (Haldol Inj Iv/Im*) 2 mg IV SLOW PU Q6H PRN PRN Reason: AGITATION Last Admin: 02/27/19 19:58 Dose: 2 mg Oxycodone/Acetaminophen (Percocet 5/325 Tab*) 1 tab PO Q6H PRN PRN Reason: PAIN - SEVERE Last Admin: 02/26/19 00:03 Dose: 1 tab Vital Signs - 8 hr 02/28/19 02/28/19 02/28/19 07:15 07:40 11:15 Temperature 98.0 F 97.4 F Pulse Rate 76 82 Respiratory 19 16 18 Rate Blood Pressure 148/44 131/44 (mmHg) O2 Sat by Pulse 97 99 Oximetry Oxygen Devices in Use Now: None Exam: Pt is well, oriented Heart: normal S1S2 Lung: clear Abdomen: soft, non tender Calves: non tender Result Diagrams: 02/27/19 06:41 02/27/19 06:41 Microbiology and Other Data: Microbiology 02/25/19 14:46 Urine Culture - Final Urine No Growth (<1,000 CFU/mL) Assess/Plan/Problems-Billing Assessment: 88 y/o F with past medical history of dementia, Aortic Stenosis(s/p sortic valve repair), A Fib, GI Bleed, osteoarthitis and HTN was brought to ED by her friend who found her lying on a couch with laceration on elbow and knees. Found to have Odontoid fracture on CT scan. Neurosurgeon planned for surgery but was cancelled due to equipment failure. Patient will be transferred to nearest tertiary centers. - Patient Problems (1) Odontoid fracture Current Visit: Yes Status: Acute Code(s): S12.110A - ANTERIOR DISPLACED TYPE II DENS FRACTURE, INIT FOR CLOS FX SNOMED Code(s): 720096568 Comment: Secondary to the fall. plan for operation due to unstable nature. (2) Compression fracture Current Visit: Yes Status: Acute Code(s): AGK6923 - SNOMED Code(s): 350529058 Comment: T1, T2 compression fracture without osseous retropulsion in MRI cervical spine. Likely traumatic in nature follow up with primary care to check up on osteoprosis (3) Dementia Current Visit: Yes Status: Acute Code(s): F03.90 - UNSPECIFIED DEMENTIA WITHOUT BEHAVIORAL DISTURBANCE SNOMED Code(s): 77685608 Comment: Patient has impaired memory with disorientation. on one to one monitoring due to her disruptive behaviour since admission (4) Aortic stenosis Current Visit: No Status: Acute Code(s): I35.0 - NONRHEUMATIC AORTIC (VALVE ) STENOSIS SNOMED Code(s): 56956465 Comment: - s/p valve replcement - echo normal this admission (5) Hyperlipidemia Current Visit: No Status: Acute Code(s): E78.5 - HYPERLIPIDEMIA, UNSPECIFIED SNOMED Code(s): 87589720 Comment: continue lipitor (6) Afib Current Visit: No Status: Chronic Code(s): I48.91 - UNSPECIFIED ATRIAL FIBRILLATION SNOMED Code(s): 79783543 Comment: - paroxysmal Afib - hx of GI bleed. No anticoagulation. - continue ASA (7) DVT prophylaxis Current Visit: Yes Status: Acute Code(s): Z29.9 - ENCOUNTER FOR PROPHYLACTIC MEASURES, UNSPECIFIED SNOMED Code(s): 973170039 Comment: SCD. Status and Disposition: Patient came from home, stays alone at home with helper who came in several times a week. Will need rehab or intermediate care place when getting discharged Attestation Documenting Resident: Rosa Metcalf Supervising Physician: Britany Sandoval Attestation: This service has been performed in part by a resident under the direction of a teaching physician.I, Britany Sandoval, performed the service, or was physically present during the critical, or mayo portions of the service, furnished by the resident. I participated in the management of the patient.
[2019-02-28 15:53] VITALS: BP 115/50
--- NOTE | 2019-02-28 16:36 | TRS ---
CC: Dr. Erin Bates; Dr. Bruce Kohli TRANSFER SUMMARY: DATE OF ADMISSION: 02/24/19 DATE OF TRANSFER: 02/28/19 DISPOSITION AT TIME OF TRANSFER: Stable for floor bed PRIMARY DIAGNOSIS: Odontoid fracture, C2 cervical spine, status post mechanical fall. SECONDARY DIAGNOSES: 1. Dementia, oriented to self at baseline 2. Aortic stenosis, status post AVR. 3. Paroxysmal atrial fibrillation not on anticoagulation. 4. History of peptic ulcer disease. 5. Osteoarthritis. 6. Hypertension. MEDICATIONS AT TIME OF DISCHARGE: 1. Acetaminophen 650 mg p.o. q.6 hours. 2. Enoxaparin 30 mg subcu q.24 hours, last dose 7 a.m. 02/28/19. 3. Haloperidol 2 mg IV slow push q.6 hours p.r.n. for agitation. 4. Oxycodone 5 with acetamnopen 1 tabs p.o. q.6 hours p.r.n. for pain. Medications prior to this administration were none. HOSPITAL COURSE AND HOSPITAL PROBLEM IS FOLLOWS: An 88-year-old female with the above past medical history who presented to emergency room after an unwitnessed fall down 13 steps. The patient has a caregiver and lives at home with caregiver checking in several times a day. Caregiver reports that she found the patient down with abrasions on left arm, bilateral knees, back of head , left hip, and left foot. The patient herself who has dementia at baseline is only oriented to self complained of pain in fraga as well as neck. The patient does have family, but they are located in [place]. Imaging done in the emergency room included knee, forearm, elbow, pelvis and lower extremity radiographs, which were unremarkable. A cervical spine CT revealed an odontoid fracture as well as compression fractures in T1 and T2 deemed to be old. A brain CT showed no acute intracranial pathology. Subsequent followup imaging is as per below because the patient was placed in C- collar and needed neurosurgical evaluation. The patient was admitted to the hospital for neurosurgical evaluation and her hospital course by problems is as follows. 1. Odontoid fracture of C2. Neurosurgery evaluated the patient on 02/25/19 and felt that it was an unstable fracture and expected incompetency of the transverse ligament. Surgical intervention, we thought would be the best approach with the alternative to be a hard collar for life. Surgery discussed plan of care with the patient's family who ultimately elected for surgery, which was anticipated to be done on 02/27/19. Unfortunately, while preparing for surgery, the neurosurgical team experienced a preoperative mechanical failure with one of the machines needed to be used during the operation for this procedure to go successfully and they were unable to have it repaired because Neurosurgery will be on vacation starting 02/28/19. Discussion with an outside neurosurgical team was made to have the patient transferred for further treatment with a procedure that is no longer able to be performed at our facility. The patient has done well in C-collar and pain is well controlled on current regimen. 2. Dementia. The patient is oriented to self at baseline. She has had limited behavioral problems with the exception of mild sundowning in the evening and has been responsive to low-dose haloperidol, which she tolerated very well. She is on no known medications for this at baseline. 3. Aortic stenosis with history of aortic valve replacement. Neurosurgery asked the medicine team to preoperatively clear this patient. An echocardiogram was done, which showed no stenosis and a well-seated valve with no complications. No regional wall motion abnormalities. The patient has also got a history of paroxysmal atrial fibrillation although has been in sinus here. She has a CRI score of 1, which put her at class 2 risk, which indicates a 5.6% risk of complication. This was shared with the family and they felt that it was reasonable to proceed with the surgery given ways of risk and benefits. She is a moderate risk patient based on age alone and a low risk cardiac patient to proceed with a [id number] risk procedure. Ultimately, there is no further testing or changes in medications that need to be done to further preoperatively improve her chances to have a successful surgery from a medical stand point. 4. PAF. The patient is not on anticoagulation. 5. History of PUD and shared decision making done with the family in the past. She is not on PPI, could consider postoperatively. 5. DVT prophylaxis. The patient was given last dose of DVT prophylaxis with some Lovenox on 02/28/19. Ultimately, the patient was accepted for transfer to [facility], which was cleared with daughter whose information is included in this transfer. Her name is Mcarina Hess. Her home phone is [phone]. She has been responsive and helpful during this process and transfer and can be reached by the team directly. Her caregiver is local and Macrina has been communicating with caregiver daily. Ultimately, postoperatively she will need to likely be transferred to short term rehab, which care management can contact through the patient's daughter. LABS AND STUDIES DONE DURING THIS HOSPITALIZATION: Imaging will be sent. Again 02/24/19, forearm x-ray, bilateral knee x-ray, lower extremity x-ray, pelvis x-ray all showed no acute fracture. Also 02/24/19, a lumbar and thoracic spine showed compression fractures in T1, T2 that were stable with no retropulsion. On 02/26/19, a cervical spine and brain MRI were done, which showed a type 2 odontoid process fracture and paravertebral soft tissue edema indicating a ligamentous injury to the anterior and longitudinal ligament, well as noted as per above compression fractures at T1 and T2 without osseous retropulsion. A transthoracic echocardiogram was done on 02/26/19, which showed well-seated bioprosthetic AVR with no stenosis, regional wall motion abnormalities, or other valvular pathology. An EKG was done on 02/27/19 in preparation for OR, which showed atrial fibrillation with no acute ischemia. Labs on 02/27/19 were unremarkable with the exception of a mildly low hemoglobin of 11.9. Urinalysis is unremarkable. Microbiology, there was a urine culture sent on admission, which showed no growth to date. CONSULTANTS DURING THIS HOSPITALIZATION: Included Neurosurgery. ITEMS TO FOLLOW UP ON STATUS POST TRANSFER: 1. Odontoid fracture. She is being transferred for definitive management of her unstable type 2 odontoid fracture and she has been accepted at [facility] for this procedure. Further care coordination and postoperative care can be done through the patient's daughter whose number is listed above. If there are any questions about the care of this patient during this hospitalization please do not hesitate to reach out to the hospitalist team directly who cared for this patient and my name and contact information is included in this transfer summary. TIME SPENT: Forty five minutes was spent on the planning of this transfer summary with over half of that spent directly at the bedside of the patient providing direct patient care. Please do not hesitate to contact us directly. The patient intends to be transferred on 02/28/19. [id number]/[facility] #: [id number] ZAYRA
[2019-02-28] MEDS: oxyCODONE/Acetamin 5/325 MG* TAB PO PRN (16:47)
--- NOTE | 2019-03-01 22:23 | DS ---
TRANSFER SUMMARY: ADDENDUM: DATE OF ADMISSION: 02/24/19 DATE OF TRANSFER: 02/28/19 Addendum to the transfer summary that I would like to make is clarification for the patient's acceptance was to [facility] in [place] as it was unclear on prior discharge. Please note that the patient was accepted for transfer to [facility] in [place], [place]. [id number]/[facility] #: [id number] MTDD
== END 2019-02-28 18:30 | disposition short-term general hospital (02) | DRG 552 ==
LOC: ED 18:32 → MED 23:44
PROVIDERS: ADMIT Internal Medicine; ATTEND Internal Medicine
DX: S12.110A Anterior displaced Type II dens fracture, initial encounter for closed fracture (principal); S22.019A Unspecified fracture of first thoracic vertebra, initial encounter for closed fracture; S22.029A Unspecified fracture of second thoracic vertebra, initial encounter for closed fracture; W10.9XXA Fall (on) (from) unspecified stairs and steps, initial encounter; F03.90 Unspecified dementia, unspecified severity, without behavioral disturbance, psychotic disturbance, mood disturbance, and anxiety; I10 Essential (primary) hypertension; E78.5 Hyperlipidemia, unspecified; M19.90 Unspecified osteoarthritis, unspecified site; E78.00 Pure hypercholesterolemia, unspecified; I48.0 Paroxysmal atrial fibrillation; S51.012A Laceration without foreign body of left elbow, initial encounter; S51.811A Laceration without foreign body of right forearm, initial encounter; S81.012A Laceration without foreign body, left knee, initial encounter; S81.011A Laceration without foreign body, right knee, initial encounter; Z87.11 Personal history of peptic ulcer disease; Y92.009 Unspecified place in unspecified non-institutional (private) residence as the place of occurrence of the external cause; Z95.3 Presence of xenogenic heart valve; Z87.891 Personal history of nicotine dependence; Z82.0 Family history of epilepsy and other diseases of the nervous system; Z98.42 Cataract extraction status, left eye; Z98.41 Cataract extraction status, right eye; Z72.89 Other problems related to lifestyle; Z98.1 Arthrodesis status
CPT/HCPCS: 36415; 70450; 70551; 71046; 72125; 72128; 72131; 72141; 72170; 80048; 80053; 81003; 81015; 83690; 85025; 85610; 86140; 87086; 90715; 93005; 93306; 99284; A9270-GY; J0330; J0690; J1630; J1644; J1650; J2250; J2270; J2704; J3010; J3490